=== PATIENT | female | born 1960 | race Asian ===

== ENCOUNTER 2016-11-25 08:33 | Day surgery (SDC) | payer OTHER ==
[2016-11-24 14:48] VITALS: BMI 31.1
[2016-11-25] MEDS ORDERED: PROPOFOL 20 ML ONE ×2 (10:29)
[2016-11-25 11:04] VITALS: TEMP 98
[2016-11-25 11:27] VITALS: PULSE 65
[2016-11-25 12:14] VITALS: BP 121/62
--- NOTE | 2016-11-26 13:17 | PATH ---
Surgical Pathology Report Patient Name: ELAINE BELLO [facility] Rec. #: [id number] /Age/Gender: 1960 (Age: 56) / F Account: [id number] Location: [facility]-ENDOSCOPY Taken: 11/25/2016 Received: 11/25/2016 Reported: 11/26/2016 Physicians: Heri Gonzalez M.D. 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 NEGATIVE FOR DYSPLASIA. Electronically Signed Justin Stephenson M.D. Gross Description Received in formalin, labeled "biopsy GE junction" are 4 [place], irregular portions of soft tissue ranging from 0.3-0.4 cm in greatest dimension. The specimens are submitted in toto in one cassette. 11/25/201611/25/2016
== END 2016-11-25 11:45 | disposition home or self-care (01) ==
LOC: JASU-ENDO 08:33
PROVIDERS: ATTEND Internal Medicine Gastroenterology
PROC: 0DB58ZX Excision of Esophagus, Via Natural or Artificial Opening Endoscopic, Diagnostic (ICD-10-PCS; principal; 2016-11-25 10:00)
DX: K22.70 Barrett's esophagus without dysplasia (principal)
CPT/HCPCS: 88305-TC

== ENCOUNTER 2022-09-30 13:01 | Observation (INO) | payer OTHER ==
[2022-09-30 13:24] VITALS: BMI 30.5
[2022-09-30 15:56] LABS: BASO % 0.7 % (0-2.0); EOS % 1.8 % (0-4.5); HEMATOCRIT 45.3 % (32.4-45.2); HEMOGLOBIN 14.8 GM/dL (10.7-15.3); LYMPH % 32.4 % (8-40); MCH 28.9 pg (25.7-33.7); MCHC 32.7 g/dl (32.0-36.0); MEAN CELL VOLUME 88.5 fl (80-96); MEAN PLT VOLUME 8.6 fl (7.5-11.1); MONO % 8.1 % (3.8-10.2); PLATELET COUNT 232 10^3/uL (134-434); RBC 5.11 M/mm3 (3.60-5.2); RDW 12.7 % (11.6-15.6); WHITE BLOOD COUNT 7.1 K/mm3 (4.0-10.0)
[2022-09-30 16:23] LABS: CHLORIDE 106 mmol/L (98-107); SODIUM 145 mmol/L (136-145)
[2022-09-30 16:27] LABS: ANION GAP 11 MMOL/L (8-16); BLOOD UREA NITROGEN 11.2 mg/dL (7-18); CALCIUM 9.5 mg/dL (8.5-10.1); CO2 28 mmol/L (21-32); GLUCOSE,RANDOM 120 mg/dL (74-106)
[2022-09-30 16:30] LABS: CREATININE 0.8 mg/dL (0.55-1.3); SGOT/AST 24 U/L (15-37); SGPT/ALT 42 U/L (13-61)
[2022-09-30 16:31] LABS: ACTIVATED PTT 34.7 SECONDS (25.2-36.5); INR 0.97 (0.83-1.09); PROTHROMBIN TIME (PATIENT) 11.2 SEC (9.7-13.0)
[2022-09-30 16:32] LABS: BILIRUBIN,TOTAL 0.8 mg/dL (0.2-1); TOT PROT 7.5 g/dl (6.4-8.2)
[2022-09-30 16:33] LABS: ALK PHOS 86 U/L (45-117)
[2022-09-30] MEDS ORDERED: ASPIRIN 81 MG CHEWABLE TABLETS PO ONE (17:49)
[2022-09-30] MEDS ORDERED: ASPIRIN 81 MG CHEWABLE TABLETS ONE (18:14)
[2022-09-30 23:21] LABS: CHOLESTEROL 122 mg/dL (50-200); TRIGLYCERIDES 259 mg/dL (0-150)
[2022-09-30 23:22] LABS: LDL CHOLESTEROL (ONLY SJRH) 38 mg/dL (5-100)
[2022-09-30 23:24] LABS: HDL CHOLESTEROL 75 mg/dL (40-60)
[2022-10-01 08:11] LABS: BASO % 1.7 % (0-2.0); EOS % 2.7 % (0-4.5); HEMATOCRIT 42.6 % (32.4-45.2); HEMOGLOBIN 13.6 GM/dL (10.7-15.3); LYMPH % 33.9 % (8-40); MCH 28.3 pg (25.7-33.7); MCHC 31.8 g/dl (32.0-36.0); MEAN PLT VOLUME 9.2 fl (7.5-11.1); MONO % 5.2 % (3.8-10.2); NEUT % 56.5 % (42.8-82.8); PLATELET COUNT 201 10^3/uL (134-434); RBC 4.79 M/mm3 (3.60-5.2); WHITE BLOOD COUNT 6.8 K/mm3 (4.0-10.0)
[2022-10-01 08:31] LABS: CHLORIDE 112 mmol/L (98-107); SODIUM 158 mmol/L (136-145)
[2022-10-01 08:35] LABS: ALBUMIN 3.4 g/dl (3.4-5.0); BLOOD UREA NITROGEN 13.8 mg/dL (7-18); GLUCOSE,RANDOM 134 mg/dL (74-106); MAGNESIUM 2.2 mg/dL (1.8-2.4)
[2022-10-01 08:36] LABS: ANION GAP 19 MMOL/L (8-16); CO2 27 mmol/L (21-32)
[2022-10-01 08:38] LABS: CREATININE 0.8 mg/dL (0.55-1.3); SGPT/ALT 36 U/L (13-61)
[2022-10-01 08:39] LABS: SGOT/AST 24 U/L (15-37)
[2022-10-01 08:40] LABS: BILIRUBIN,TOTAL 0.9 mg/dL (0.2-1); TOT PROT 6.3 g/dl (6.4-8.2)
[2022-10-01 08:41] LABS: ALK PHOS 65 U/L (45-117)
[2022-10-01] MEDS ORDERED: INSULIN SLIDING SCALE (NOVOLOG) 1 VIAL SQ PRN (09:10)
[2022-10-01] MEDS ORDERED: ASPIRIN COATED 81 MG TABLET.EC ONE (09:25)
[2022-10-01] MEDS: ASPIRIN 81 MG CHEWABLE TABLETS PO SCH (10:31)
[2022-10-01] MEDS: INSULIN SLIDING SCALE (NOVOLOG) 1 VIAL SQ SCH ×2 (11:23→16:46)
[2022-10-01] MEDS: metFORMIN HCL 500 MG TABLET (FP) PO SCH (17:01)
[2022-10-01] MEDS ORDERED: metFORMIN HCL 500 MG TABLET (FP) ONE (17:01)
[2022-10-01] MEDS ORDERED: ATORVASTATIN CA 20 MG TABLET (FP) PO SCH (22:00)
[2022-10-02] MEDS ORDERED: ATORVASTATIN CA 20 MG TABLET (FP) ONE (03:39)
[2022-10-02 07:41] VITALS: BP 136/77; PULSE 63; RESP 18; TEMP 98.3
[2022-10-02] MEDS ORDERED: REGADENOSON 0.4 MG/5 ML PRE-FILLED SYRINGE IVPUSH ONE ×2 (08:31→11:30)
[2022-10-02] MEDS: INSULIN SLIDING SCALE (NOVOLOG) 1 VIAL SQ SCH ×2 (08:47→11:32)
[2022-10-02] MEDS: metFORMIN HCL 500 MG TABLET (FP) PO SCH (08:48)
[2022-10-02] MEDS: ASPIRIN 81 MG CHEWABLE TABLETS PO SCH (11:34)
[2022-10-02] MEDS ORDERED: ASPIRIN 81 MG CHEWABLE TABLETS ONE (11:35)
== END 2022-10-02 12:49 | disposition home or self-care (01) ==
LOC: JER 13:01 → JERBED 20:13
PROVIDERS: ADMIT Internal Medicine; ATTEND Internal Medicine
PROC: 3E013VG Introduction of Insulin into Subcutaneous Tissue, Percutaneous Approach (ICD-10-PCS; principal; 2022-09-30)
DX: R77.8 Other specified abnormalities of plasma proteins (principal); E11.9 Type 2 diabetes mellitus without complications; I10 Essential (primary) hypertension; G45.9 Transient cerebral ischemic attack, unspecified; E66.01 Morbid (severe) obesity due to excess calories; Z68.30 Body mass index [BMI] 30.0-30.9, adult; R42 Dizziness and giddiness; R50.9 Fever, unspecified; R07.9 Chest pain, unspecified; Z90.710 Acquired absence of both cervix and uterus; Z29.8 Encounter for other specified prophylactic measures; N92.0 Excessive and frequent menstruation with regular cycle; Z09 Encounter for follow-up examination after completed treatment for conditions other than malignant neoplasm; R00.1 Bradycardia, unspecified
CPT/HCPCS: 0241U-QW; 36415; 70450-TC; 70551-TC; 71046-TC-FY; 78452-TC; 80053; 80061; 82962; 83036; 83735; 84443; 84484; 85025; 85379; 85610; 85730; 93005; 93010; 93017; 93306-TC; 93880-TC; 96372; 99285-25; A9502; G0378; J2785